=== PATIENT | male | born 2000 | race Caucasian/White ===

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

== ENCOUNTER 2023-06-17 18:06 | Emergency (ER) | payer BC ==
[2023-06-17] MEDS ORDERED: Sodium Chloride 0.9% 1000 ML 1,000 ML IV STA (18:25)
--- NOTE | 2023-06-17 18:39 | ERPHSYRPT ---
- History of Present Illness Time Seen by Provider: 06/17/23 18:32 Source: patient Exam Limitations: no limitations Patient Subjective Stated Complaint: Sycope Triage Nursing Assessment: Patient brought into ED per EMS and transferred to bed with assist of 2. Patient A+O X 3. Patient's skin pink, warm and dry. EMS reports patient getting called to uTest for patient with syncopal episode. When EMS arrived patient was sitting drinking some orange juice. Patient states he started feeling shaky and got in line to pay for drink when he had a syncopal episode. Patient complains of headache 4/10. Patient states before it happened he was dizzy and felt sick then passed out. Physician History: Patient is a 22-year-old male presents to our emergency department via EMS for evaluation of syncopal episode. Patient was working his shift at the local [employer]. Patient started his shift approximately 4 PM. 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 Patient states that he felt a little dizzy and fell backward. Patient believes he hit his head and now he has a headache a 4 out of 10. Patient eventually came around. His coworker gave him orange juice. Upon arrival patient was back at his baseline. Patient arrived collared not boarded. Patient denies a history of the same. Patient states he is otherwise healthy. There was no associated chest pain or shortness of breath. No nausea vomiting or diaphoresis. No heart palpitations. No numbness tingling or weakness. No focal or lateralizing symptoms. Patient voices no other complaints or concerns at this time. Portions of this note were created with voice recognition technology. There may be grammatical, spelling, punctuation or sound alike errors Timing/Duration: today Severity: moderate Modifying Factors: Improves With: nothing Associated Symptoms: denies symptoms Allergies/Adverse Reactions: No Known Drug Allergies Allergy (Verified 06/17/23 18:12) Home Medications: No Reportable Medications [No Reported Medications] 02/03/20 [History] Hx Tetanus, Diphtheria Vaccination/Date Given: Yes Hx Influenza Vaccination/Date Given: No Hx Pneumococcal Vaccination/Date Given: No Immunizations Up to Date: No Travel Risk - International Travel Have you traveled outside of the country in past 3 weeks: No - Coronavirus Screening Are you exhibiting any of the following symptoms?: No Close contact with a COVID-19 positive Pt in past 14-21 Days: No - Vaccine Status Have you recieved a Covid-19 vaccination: Yes Feed [employer] 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 - Vaccination Dates Dates if Unknown: na - Review of Systems Constitutional: No Symptoms, No Fever, No Chills Eyes: No Symptoms Ears, Nose, & Throat: No Symptoms Respiratory: No Symptoms, No Cough, No Dyspnea Cardiac: No Symptoms, No Chest Pain, No Edema, No Syncope Abdominal/Gastrointestinal: No Symptoms, No Abdominal Pain, No Nausea, No Vomiting, No Diarrhea Genitourinary Symptoms: No Symptoms, No Dysuria Musculoskeletal: No Symptoms, No Back Pain, No Neck Pain Skin: No Symptoms, No Rash Neurological: No Symptoms, No Dizziness, No Focal Weakness, No Sensory Changes Psychological: No Symptoms Endocrine: No Symptoms Hematologic/Lymphatic: No Symptoms Immunological/Allergic: No Symptoms All Other Systems: Reviewed and Negative - Past Medical History Pertinent Past Medical History: Yes Neurological History: No Pertinent History ENT History: Other Cardiac History: No Pertinent History Respiratory History: No Pertinent History Endocrine Medical History: No Pertinent History Musculoskeletal History: No Pertinent History GI Medical History: Hernia History: No Pertinent History Psycho-Social History: No Pertinent History Male Reproductive Disorders: No Pertinent History Other Medical History: cyst removed from nasal cavity. stitches to left leg. glue to chin - Past Surgical History Past Surgical History: Yes Neuro Surgical History: No Pertinent History Cardiac: No Pertinent History Respiratory: No Pertinent History Gastrointestinal: Hernia Repair Genitourinary: No Pertinent History Musculoskeletal: No Pertinent History Male Surgical History: No Pertinent History - Social History Smoking Status: Never smoker Exposure to second hand smoke: No Drug Use: none Patient Lives Alone: No (roommate) - Nursing Vital Signs Nursing Vital Signs: Initial Vital Signs Pulse Rate 82 06/17/23 18:04 Blood Pressure 121/61 06/17/23 18:04 Pain Scale Pain Intensity 0 - Physical Exam General Appearance: no apparent distress, alert Eye Exam: PERRL/EOMI, eyes nml inspection Ears, Nose, Throat Exam: normal ENT inspection, TMs normal, pharynx normal, moist mucous membranes Neck Exam: normal inspection, non-tender, supple, full range of motion Respiratory Exam: normal breath sounds, lungs clear, No respiratory distress Cardiovascular Exam: regular rate/rhythm, normal heart sounds, normal peripheral pulses Gastrointestinal/Abdomen Exam: soft, normal bowel sounds, No tenderness, No mass Back Exam: normal inspection, normal range of motion, No CVA tenderness, No vertebral tenderness Extremity Exam: normal inspection, normal range of motion, pelvis stable Neurologic Exam: alert, oriented x 3, cooperative, normal mood/affect, nml cerebellar function, nml station & gait, sensation nml, No motor deficits Skin Exam: normal color, warm, dry, No rash Lymphatic Exam: No adenopathy SpO2 Interpretation: normal SpO2: 100 O2 Delivery: Room Air - Course Nursing assessment & vital signs reviewed: Yes EKG Interpreted by Me: RATE (84), Sinus Rhythm, NORMAL AXIS, NORMAL INTERVALS - CT Exams Head CT Interpretation: Tele-radiologist Report (CT head shows no acute intracranial process) Ordered Tests: Active Orders 24 hr Category Date Time Status Resistor Coater STAT Care 06/17/23 18:25 Active EKG-ER Only STAT Care 06/17/23 18:25 Active IV Insertion STAT Care 06/17/23 18:25 Active Pulse Oximetry (ED) STAT Care 06/17/23 18:25 Active HEAD WITHOUT CONTRAST [CT] Stat Exams 06/17/23 22:02 Taken ACETAMINOPHEN Stat Lab 06/17/23 18:50 Completed CBC W DIFF Stat Lab 06/17/23 18:50 Completed CMP Stat Lab 06/17/23 18:50 Completed ETHYL ALCOHOL Stat Lab 06/17/23 18:50 Completed SALICYLATE Stat Lab 06/17/23 18:50 Completed TROPONIN Q4H Lab 06/17/23 18:50 Completed TROPONIN Q4H Lab 06/17/23 20:55 Completed TROPONIN Q4H Lab 06/18/23 02:30 Ordered UA W/RFX UR CULTURE Stat Lab 06/17/23 18:56 Completed Urine Triage Profile Stat Lab 06/17/23 18:56 Completed Holter Monitor ONCE RT 06/17/23 22:00 Active Medication Summary Discontinued Medications Generic Name Dose Route Start Last Admin Trade Name Freq PRN Reason Stop Dose Admin Sodium Chloride 1,000 mls @ 999 mls/hr 06/17/23 18:25 06/17/23 19:50 Sodium Chloride 0.9% 1000 Ml IV 06/17/23 19:25 Infused .Q1H1M STA Infusion Sodium Chloride Confirm 06/17/23 18:49 Sodium Chloride 0.9% 1000 Ml Administered 06/17/23 18:50 Dose 1,000 mls @ ud .ROUTE .STK-MED ONE Lab/Rad Data: Laboratory Result Diagrams 06/17/23 18:50 06/17/23 18:50 Laboratory Results 06/17/23 06/17/23 06/17/23 Range/Units 20:55 18:56 18:56 WBC (4.0-10.5) x10^3/uL RBC (4.1-5.6) x10^6/uL Hgb (12.5-18.0) g/dL Hct (42-50) % MCV (78-100) fL MCH (26-32) pg MCHC (32-36) g/dL RDW (11.5-14.0) % Plt Count (150-450) x10^3/uL MPV (7.5-11.0) fL Gran % (36.0-66.0) % Immature Gran % (Auto) (0.00-0.4) % Nucleat RBC Rel Count (0.00-0.1) % Eos # (Auto) (0-0.5) x10^3/uL Immature Gran # (Auto) (0.00-0.03) x10^3u/L Absolute Lymphs (auto) (1.0-4.6) x10^3/uL Absolute Monos (auto) (0.0-1.3) x10^3/uL Absolute Nucleated RBC (0.00-0.01) x10^3u/L Lymphocytes % (24.0-44.0) % Monocytes % (0.0-12.0) % Eosinophils % (0.00-5.0) % Basophils % (0.0-0.4) % Absolute Granulocytes (1.4-6.9) x10^3/uL Basophils # (0-0.4) x10^3/uL Sodium (137-145) mmol/L Potassium (3.5-5.1) mmol/L Chloride (98-107) mmol/L Carbon Dioxide (22-30) mmol/L Anion Gap (5-15) MEQ/L BUN (9-20) mg/dL Creatinine (0.66-1.25) mg/dL Estimated GFR ML/MIN Glucose (74-106) mg/dL Calcium (8.4-10.2) mg/dL Total Bilirubin (0.2-1.3) mg/dL AST (17-59) U/L ALT (0-50) U/L Alkaline Phosphatase (38-126) U/L Troponin I < 0.012 (0.000-0.034) ng/mL Serum Total Protein (6.3-8.2) g/dL Albumin (3.5-5.0) g/dL Urine Color Yellow (Yellow) Urine Appearance Clear (Clear) Urine pH 6.5 (4.6-8.0) Ur Specific [place] 1.025 (1.005-1.030) Urine Protein Negative (Negative) Urine Glucose (UA) Negative (Negative) mg/dL Urine Ketones Negative (Negative) Urine Blood Negative (Negative) Urine Nitrite Negative (Negative) Urine Bilirubin Negative (Negative) Urine Urobilinogen 1.0 A (0.2) mg/dL Ur Leukocyte Esterase Trace A (Negative) U Hyaline Cast (Auto) 3-5 A (0-2) /LPF Urine Microscopic RBC 0-2 (0-5) /HPF Urine Microscopic WBC 0-2 (0-5) /HPF Ur Epithelial Cells None Seen (None Seen) /HPF Urine Bacteria None Seen (None Seen) /HPF Urine Culture Reflexed NO (NO) Salicylates (2-20) mg/dL Urine Opiates Level NEGATIVE (NEGATIVE) Ur Methadone NEGATIVE (NEGATIVE) Acetaminophen (10-30) ug/ml Urine Barbiturates NEGATIVE (NEGATIVE) Ur Phencyclidine (PCP) NEGATIVE (NEGATIVE) Urine Amphetamine NEGATIVE (NEGATIVE) U Benzodiazepine Level NEGATIVE (NEGATIVE) Urine Cocaine NEGATIVE (NEGATIVE) Urine Marijuana (THC) POSITIVE (NEGATIVE) Ethyl Alcohol (0-10) mg/dL 06/17/23 06/17/23 06/17/23 Range/Units 18:50 18:50 18:50 WBC 9.2 (4.0-10.5) x10^3/uL RBC 5.72 H (4.1-5.6) x10^6/uL Hgb 15.3 (12.5-18.0) g/dL Hct 45.9 (42-50) % MCV 80.2 (78-100) fL MCH 26.7 (26-32) pg MCHC 33.3 (32-36) g/dL RDW 13.5 (11.5-14.0) % Plt Count 261 (150-450) x10^3/uL MPV 10.4 (7.5-11.0) fL Gran % 78.8 H (36.0-66.0) % Immature Gran % (Auto) 0.4 (0.00-0.4) % Nucleat RBC Rel Count 0.0 (0.00-0.1) % Eos # (Auto) 0.07 (0-0.5) x10^3/uL Immature Gran # (Auto) 0.04 H (0.00-0.03) x10^3u/L Absolute Lymphs (auto) 1.18 (1.0-4.6) x10^3/uL Absolute Monos (auto) 0.59 (0.0-1.3) x10^3/uL Absolute Nucleated RBC 0.00 (0.00-0.01) x10^3u/L Lymphocytes % 12.8 L (24.0-44.0) % Monocytes % 6.4 (0.0-12.0) % Eosinophils % 0.8 (0.00-5.0) % Basophils % 0.8 (0.0-0.4) % Absolute Granulocytes 7.25 H (1.4-6.9) x10^3/uL Basophils # 0.07 (0-0.4) x10^3/uL Sodium 140 (137-145) mmol/L Potassium 4.3 (3.5-5.1) mmol/L Chloride 103 (98-107) mmol/L Carbon Dioxide 25 (22-30) mmol/L Anion Gap 15.8 H (5-15) MEQ/L BUN 11 (9-20) mg/dL Creatinine 0.72 (0.66-1.25) mg/dL Estimated GFR > 60.0 ML/MIN Glucose 105 (74-106) mg/dL Calcium 9.8 (8.4-10.2) mg/dL Total Bilirubin 1.00 (0.2-1.3) mg/dL AST 24 (17-59) U/L ALT 20 (0-50) U/L Alkaline Phosphatase 58 (38-126) U/L Troponin I < 0.012 (0.000-0.034) ng/mL Serum Total Protein 7.5 (6.3-8.2) g/dL Albumin 4.6 (3.5-5.0) g/dL Urine Color (Yellow) Urine Appearance (Clear) Urine pH (4.6-8.0) Ur Specific [place] (1.005-1.030) Urine Protein (Negative) Urine Glucose (UA) (Negative) mg/dL Urine Ketones (Negative) Urine Blood (Negative) Urine Nitrite (Negative) Urine Bilirubin (Negative) Urine Urobilinogen (0.2) mg/dL Ur Leukocyte Esterase (Negative) U Hyaline Cast (Auto) (0-2) /LPF Urine Microscopic RBC (0-5) /HPF Urine Microscopic WBC (0-5) /HPF Ur Epithelial Cells (None Seen) /HPF Urine Bacteria (None Seen) /HPF Urine Culture Reflexed (NO) Salicylates < 1.0 L (2-20) mg/dL Urine Opiates Level (NEGATIVE) Ur Methadone (NEGATIVE) Acetaminophen < 10 L (10-30) ug/ml Urine Barbiturates (NEGATIVE) Ur Phencyclidine (PCP) (NEGATIVE) Urine Amphetamine (NEGATIVE) U Benzodiazepine Level (NEGATIVE) Urine Cocaine (NEGATIVE) Urine Marijuana (THC) (NEGATIVE) Ethyl Alcohol < 10 (0-10) mg/dL - Progress Progress: improved Progress Note: Patient is a 30-year-old male presents to our ED for evaluation of syncope. Patient was at work felt dizzy and passed out. Patient hit the back of his head on the floor. Patient has a slight headache. Physical exam is nonremarkable. Patient neurologically intact. Test ordered include EKG which revealed normal sinus rhythm. CT head negative for acute intracranial pathology. Toxicology screen ordered. Patient marijuana use positive. CBC CMP within normal limits. Alcohol negative. Salicylate negative. Troponin negative x2. Urinalysis negative. Patient reassessed. He is currently symptomatic. Holter monitor placed. Patient received a liter of normal saline as well. Family at bedside. They voiced no other complaints or concerns at this time. Patient states he is ready for discharge. He agrees to follow-up with his primary care doctor within 48 hours for reevaluation. Portions of this note were created with voice recognition technology. There may be grammatical, spelling, punctuation or sound alike errors Complexity of problem addressed is moderate acute complicated No critical care time Complex of data reviewed and analyzed is moderate. Test reviewed test analyzed. Clinical correlation made between history and physical and lab/imaging studies. Plan of care established. Patient received a Holter monitor for further evaluation of cardiac rhythm. Risk of complication and or risk of morbidity/mortality of patient management is moderate. No social determinants of health present to impede follow-up. Plan of care established for shared decision making. Time to discharge patient is approximately 10 minutes. 06/17/23 22:43 Counseled pt/family regarding: lab results - Departure Departure Disposition: Home Clinical Impression: Syncope and collapse Condition: Stable Critical Care Time: No Referrals: DOCTOR,NO FAMILY [Primary Care Provider] - Follow up/PCP as directed Additional Instructions: Discharge/Care Plan SEN SHEPHERD was seen on 06/17/23 in the Emergency Room. The patient was counseled regarding Diagnosis,Lab results, Imaging studies, need for follow up and when to return to the Emergency Room. Prescriptions given: Discharge Note I have spoken with the patient and/or caregivers. I have explained the patient's condition, diagnosis and treatment plan based on the information available to me at this time. I have answered the patient's and/or caregiver's questions and addressed any concerns. The patient and/or caregivers have as good understanding of the patient's diagnosis, condition and treatment plan as can be expected at this point. The vital signs have been stable. The patient's condition is stable and appropriate for discharge from the emergency department. The patient will pursue further outpatient evaluation with the primary care physician or other designated or consulting physician as outlined in the disch arge instructions. The patient and/or caregivers are agreeable to this plan of care and follow-up instructions have been explained in detail. The patient and/or caregivers have received these instruction. The patient/and or caregivers are aware that any significant change in condition or worsening of symptoms should prompt an immediate return to this or the closest emergency department or call 911.
[2023-06-17] MEDS ORDERED: Sodium Chloride 0.9% 1000 ML 1,000 ML ONE (18:49)
[2023-06-17 19:09] LABS: Appearance Clear (Clear); Bacteria None Seen /HPF (None Seen); Bilirubin Negative (Negative); Blood Negative (Negative); Epithelial Cells None Seen /HPF (None Seen); Glucose, Urine Negative (Negative); Ketones Negative (Negative); Leukocyte Esterase Trace (Negative); Nitrite Negative (Negative); Ph 6.5 (4.6-8.0); Protein,Urine Dip Negative (Negative); RBC 0-2 /HPF (0-5); Specific Gravity 1.025 (1.005-1.030); WBC 0-2 /HPF (0-5)
[2023-06-17 19:14] LABS: ACETAMINOPHEN < 10 ug/ml (10-30); ALBUMIN 4.6 g/dL (3.5-5.0); ALKALINE PHOSPHATASE 58 U/L (38-126); ANION GAP 15.8 MEQ/L (5-15); BLOOD UREA NITROGEN 11 mg/dL (9-20); CHLORIDE 103 mmol/L (98-107); Calcium 9.8 mg/dL (8.4-10.2); Carbon Dioxide 25 mmol/L (22-30); Creatinine 1 0.72 mg/dL (0.66-1.25); EST GLOMERULAR FILTRATION RATE > 60.0 ML/MIN; ETHYL ALCOHOL < 10 mg/dL (0-10); Glucose 105 mg/dL (74-106); Potassium 4.3 mmol/L (3.5-5.1); SALICYLATE < 1.0 mg/dL (2-20); SGOT/AST 24 U/L (17-59); SGPT/ALT 20 U/L (0-50); SODIUM 140 mmol/L (137-145); Total Protein 7.5 g/dL (6.3-8.2)
[2023-06-17 19:23] LABS: Amphetamine,Urine NEGATIVE (NEGATIVE); Barbiturate,Urine NEGATIVE (NEGATIVE); Benzodiazepine,Urine NEGATIVE (NEGATIVE); Cocaine,Urine NEGATIVE (NEGATIVE); Methadone,Urine NEGATIVE (NEGATIVE); Opiate,Urine NEGATIVE (NEGATIVE); PCP,Urine NEGATIVE (NEGATIVE); THC,Urine POSITIVE (NEGATIVE)
[2023-06-17 19:42] LABS: Absolute Neutrophil Ct (ANC) 7.25 x10^3/uL (1.4-6.9); BASOPHIL % 0.8 % (0.0-0.4); Basophil (Absolute #) 0.07 x10^3/uL (0-0.4); Eosinophil % 0.8 % (0.00-5.0); Eosinophil (Absolute #) 0.07 x10^3/uL (0-0.5); Hematocrit 45.9 % (42-50); Hemoglobin 15.3 g/dL (12.5-18.0); IMMATURE GRAN # 0.04 x10^3u/L (0.00-0.03); IMMATURE GRAN % 0.4 % (0.00-0.4); Lymphocyte (Absolute #) 1.18 x10^3/uL (1.0-4.6); Lymphocytes % 12.8 % (24.0-44.0); Mean Cell Volume 80.2 fL (78-100); Mean Corpuscular Hemoglobin 26.7 pg (26-32); Mean Corpuscular Hgb Concent. 33.3 g/dL (32-36); Mean Platelet Volume 10.4 fL (7.5-11.0); Monocyte (Absolute #) 0.59 x10^3/uL (0.0-1.3); Monocytes % 6.4 % (0.0-12.0); Neutrophil % 78.8 % (36.0-66.0); Platelet Count 261 x10^3/uL (150-450); Red Blood Count 5.72 x10^6/uL (4.1-5.6); Red Cell Distribution Width 13.5 % (11.5-14.0); White Blood Count 9.2 x10^3/uL (4.0-10.5)
[2023-06-17 19:44] LABS: ADD URINE CULTURE? NO (NO)
[2023-06-17 22:26] VITALS: PULSE 62
[2023-06-17 22:38] VITALS: BP 113/65
[2023-06-17 22:48] VITALS: O2SAT 100
--- NOTE | 2023-06-17 22:53 | XRAY ---
CLINICAL HISTORY:trauma COMPARISON:None. TECHNIQUE:Axial non-contrast CT scan of the brain was performed from the skull base to the high parietal region.; CTDI: 53.92mGy-cm, DLP: 1016.25mGy-cm. FINDINGS: The visualized brain parenchyma shows a normal appearance. Nazario-white matter differentiation is maintained. No midline shifts or deformity. No intracerebral or extra axial hematoma. Normal size and configuration of the cerebral ventricles. Normal CT appearance of the posterior fossa structures namely the cerebellar hemispheres, brainstem, and cerebellar peduncles. The IACs are unremarkable. The cerebello-pontine angles are clear. The pituitary gland, the pineal gland, and the optic chiasm is unremarkable. The osseous structures in the skull base are unremarkable. No definite calvarium fractures. Partial opacification of bilateral maxillary sinuses with locules of air in the left maxillary sinus opacification. Findings are suggestive of sinusitis. IMPRESSION: No acute intracranial event was seen. No acute fracture or scalp hematoma was seen. Bilateral maxillary sinusitis. Electronically Signed by: Pollo Montelongo MD. (06/17/2023 21:52:20 RN ACUTE DIALYSIS)
== END 2023-06-17 22:48 | disposition home or self-care (01) ==
LOC: ED 18:06
DX: R55 Syncope and collapse (principal); R51.9 Headache, unspecified
CPT/HCPCS: 36415; 70450; 80053; 80143; 80179; 80307; 81001; 82077; 84484; 85025; 93005; 93041; 93225; 94760; 96360; 99284

== ENCOUNTER 2024-02-11 15:56 | Emergency (ER) | payer BC ==
[2024-02-11 17:51] VITALS: RESP 18; TEMP 97.2
--- NOTE | 2024-02-11 18:27 | ERPHSYRPT ---
- History of Present Illness Time Seen by Provider: 02/11/24 16:39 Source: patient Exam Limitations: no limitations Patient Subjective Stated Complaint: Laceration Triage Nursing Assessment: Patient ambulated back to ED and transferred self to bed. Patient A+O X3. Patient's skin pink, warm and dry. Patient states he was picking up a used white washer piler to haul away to dump when a piece of white washer piler cut his right hand. 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 there was bleeding initially stopped with applying pressure. Complaining of mild to moderate dull aching pain with palpation and movements . No numbness or tingling/weakness in the fingers. Allergies/Adverse Reactions: No Known Drug Allergies Allergy (Verified 02/11/24 17:46) Home Medications: No Reportable Medications [No Reported Medications] 02/03/20 [History] Hx Tetanus, Diphtheria Vaccination/Date Given: Yes Hx Influenza Vaccination/Date Given: No Hx Pneumococcal Vaccination/Date Given: No Immunizations Up to Date: Yes Travel Risk - International Travel Have you traveled outside of the country in past 3 weeks: No - Coronavirus Screening Are you exhibiting any of the following symptoms?: No Close contact with a COVID-19 positive Pt in past 14-21 Days: No - Vaccine Status Have you recieved a Covid-19 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: 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 - Vaccination Dates Dates if Unknown: na - Review of Systems Constitutional: No Symptoms Ears, Nose, & Throat: No Symptoms Respiratory: No Symptoms Cardiac: No Symptoms Abdominal/Gastrointestinal: Constipation Musculoskeletal: Injury Skin: No Symptoms, Skin Lesions Neurological: No Symptoms Endocrine: No Symptoms Hematologic/Lymphatic: No Symptoms - Past Medical History Pertinent Past Medical History: Yes Neurological History: No Pertinent History ENT History: Other Cardiac History: No Pertinent History Respiratory History: No Pertinent History Endocrine Medical History: No Pertinent History Musculoskeletal History: No Pertinent History GI Medical History: Hernia History: No Pertinent History Psycho-Social History: No Pertinent History Male Reproductive Disorders: No Pertinent History Other Medical History: cyst removed from nasal cavity. stitches to left leg. glue to chin - Past Surgical History Past Surgical History: Yes Neuro Surgical History: No Pertinent History Cardiac: No Pertinent History Respiratory: No Pertinent History Gastrointestinal: Hernia Repair Genitourinary: No Pertinent History Musculoskeletal: No Pertinent History Male Surgical History: No Pertinent History - Social History Smoking Status: Never smoker Exposure to second hand smoke: No Drug Use: none Patient Lives Alone: No (roommate) - Nursing Vital Signs Nursing Vital Signs: Initial Vital Signs Temperature 97.2 F 02/11/24 17:46 Pulse Rate 63 02/11/24 17:46 Respiratory Rate 18 02/11/24 17:46 Blood Pressure 122/68 02/11/24 17:46 O2 Sat by Pulse Oximetry 100 02/11/24 17:46 Pain Scale Pain Intensity 5 - Physical Exam General Appearance: no apparent distress, alert Eye Exam: PERRL/EOMI Neck Exam: normal inspection Respiratory Exam: normal breath sounds, lungs clear Cardiovascular Exam: regular rate/rhythm, normal heart sounds Extremity Exam: normal range of motion, lacerations (Right hand dorsum 2.5 cm jagged edges laceration with slow oozing. Intact distal neurovascular. No tendon laceration), tenderness Neurologic Exam: alert, oriented x 3, cooperative Skin Exam: normal color SpO2 Interpretation: normal SpO2: 100 O2 Delivery: Room Air Procedures - Laceration/Wound Repair Right Hand Time of Procedure: 18:05 Wound Location: Right, hand Wound Length (cm): 2.5 Wound's Depth, Shape: superficial, linear Wound Explored: clean Irrigated: Yes Hibiclens Prep: Yes Anesthesia: 1% Lidocaine Volume Anesthetic (ccs): 2 Wound Debrided: minimal Wound Repaired With: sutures Suture Size/Type: 4-0, prolene Number of Sutures: 5 Layer Closure?: No Sterile Dressing Applied?: Yes Progress: 02/11/24 18:26 Tolerated procedure very well Ordered Tests: Medication Summary Discontinued Medications Generic Name Dose Route Start Last Admin Trade Name Freq PRN Reason Stop Dose Admin Lidocaine HCl Confirm 02/11/24 18:32 Lidocaine Hcl 1% 20 Ml Mdv 20 Ml Ml Administered 02/11/24 18:33 Dose 3 ml .ROUTE .STK-MED ONE - Progress Progress: improved Progress Note: 02/11/24 18:24 23-year-old is evaluated for superficial laceration right hand laceration l. She is up-to-date with tetanus. Laceration is thoroughly cleaned. Repaired. Recommended Tylenol ibuprofen and outpatient follow-up. Discussed signs symptoms of worsening needing return to ER which she seems understanding. Stable for discharge. Counseled pt/family regarding: diagnosis, need for follow-up Medical Desision Making - Diagnostic Testing Diagnostic test were ordered, analyzed, and reviewed by me: No - Risk of complications The pt has a mod risk of morbidity or mortality based on: Need for minor surgical intervention in patient with know risk factors - Departure Departure Disposition: Home Clinical Impression: Laceration of right hand Condition: Stable Critical Care Time: No Referrals: DOCTOR,NO FAMILY [NON-STAFF PHY W/O PRIVILEGES] - Follow up/PCP as directed Instructions: Laceration Repair With Stitches (DC) Additional Instructions: Keep it clean and dry. Take Tylenol/ibuprofen as needed. Follow-up with primary care for reevaluation in 1 to 2 days. Return to ER for worsening pain, swelling, redness, discharge, difficulty movements, fever chills. Suture removal in 10 to 14 days
[2024-02-11] MEDS ORDERED: XYLOCAINE 1% HCL 20 ML MDV ONE (18:32)
[2024-02-11 19:19] VITALS: BP 146/84; PULSE 71; O2SAT 96
== END 2024-02-11 19:24 | disposition home or self-care (01) ==
LOC: ED 15:56
DX: S61.411A Laceration without foreign body of right hand, initial encounter (principal); W26.8XXA Contact with other sharp object(s), not elsewhere classified, initial encounter
CPT/HCPCS: 12001; 99282